=== PATIENT | female | born 1955 | race Caucasian/White ===

== ENCOUNTER 2022-11-23 14:09 | Observation (INO) | payer BC, MEDICARE ==
[2022-11-23 14:30] LABS: Glucose,Whole Blood 207 mg/dL (70-110)
[2022-11-23] MEDS ORDERED: FAMOTIDINE 20 MG/2 ML VIAL IV STA (14:37)
[2022-11-23] MEDS ORDERED: diphenhydrAMINE 50 MG/ML 1 ML VIAL IVP STA (14:37)
[2022-11-23] MEDS ORDERED: methylPREDNISolone SOD SUCCI 125 MG/2 ML VIAL IV STA (14:37)
--- NOTE | 2022-11-23 14:42 | ED ---
General Adult HPI - General Chief complaint: Neuro Symptoms/Deficit Stated complaint: neuro issues Time Seen by Provider: 11/23/22 14:30 Source: patient, RN notes reviewed, old records reviewed Mode of arrival: wheelchair Limitations: no limitations - History of Present Illness Initial comments: This is a 67-year-old female who presents emergency Department stating that at 10:30 she was at a store speaking to people clearly and had no symptoms numbness in her hand. Patient states since then she came home and she's been getting intermittent numbness to her right hand that lasted about 5 minutes then goes away and comes back a little while later. Patient states she also has speech that is stuttering in nature though sometimes she is speaking clearly and other times she was stuttering. Patient's last known normal was 10:30 her symptoms and her hand began at 11 but since she hadn't talked to anybody between 02/13/2011 we are counting the last known normal at 10:30. Patient also has significantly elevated blood pressure and that is the reason she came in because she took her blood pressure home when the symptoms began noted it to be high. Patient denies any chest pain or palpitations. Patient denies any difficulty breathing shortest breath per patient denies any lightheadedness or dizziness. Currently patient has no numbness or weakness in the hand - Related Data Home Medications Medication Instructions Recorded Confirmed INSULIN LISPRO (humaLOG) [HumaLOG] See Protocol SQ TID-W/MEALS PRN 03/22/16 11/23/22 Insulin Detemir (Levemir) [Levemir] 30 units SQ DAILY 03/22/16 11/23/22 Levothyroxine Sodium [Synthroid] 75 mcg PO DAILY 03/22/16 11/23/22 Irbesartan 300 mg PO DAILY 11/23/22 11/23/22 Meclizine [Antivert] 12.5 mg PO TID PRN 11/23/22 11/23/22 Omeprazole 40 mg PO AC-BRKFST 11/23/22 11/23/22 Potassium Chloride [Klor-Con 8] 8 meq PO DAILY 11/23/22 11/23/22 Rosuvastatin [Crestor] 20 mg PO HS 11/23/22 11/23/22 amLODIPine [Norvasc] 10 mg PO DAILY PRN 11/23/22 11/23/22 metFORMIN HCL 1,000 mg PO BID 11/23/22 11/23/22 Allergies Allergy/AdvReac Type Severity Reaction Status Date / Time Iodinated Contrast Media Allergy Anaphylaxis Verified 11/23/22 15:01 [Iodinated Contrast Media - Oral and] Review of Systems ROS Statement: Those systems with pertinent positive or pertinent negative responses have been documented in the HPI. ROS Other: All systems not noted in ROS Statement are negative. Past Medical History Past Medical History: Diabetes Mellitus, Hyperlipidemia, Hypertension, Thyroid Disorder History of Any Multi-Drug Resistant Organisms: None Reported Past Surgical History: Appendectomy, Hysterectomy Past Psychological History: No Psychological Hx Reported Smoking Status: Former smoker Past Alcohol Use History: None Reported Past Drug Use History: None Reported General Exam - General Exam Comments Initial Comments: GENERAL: Patient is well-developed and well-nourished. Patient is nontoxic and well- hydrated and is in mild distress. ENT: Neck is soft and supple. No significant lymphadenopathy is noted. Oropharynx is clear. Moist mucous membranes. Neck has full range of motion without eliciting any pain. EYES: The sclera were anicteric and conjunctiva were pink and moist. Extraocular movements were intact and pupils were equal round and reactive to light. Eyelids were unremarkable. PULMONARY: Unlabored respirations. Good breath sounds bilaterally. No audible rales rhonchi or wheezing was noted. CARDIOVASCULAR: There is a regular rate and rhythm without any murmurs gallops or rubs. ABDOMEN: Soft and nontender with normal bowel sounds. SKIN: Skin is clear with no lesions or rashes and otherwise unremarkable. NEUROLOGIC: Patient is alert and oriented x3. Cranial nerves II through XII are grossly intact. Motor and sensory are also intact. Normal speech, volume and content. Symmetrical smile. NIH is 1 when she is stuttering however on occasion she has no stridor and her an atrial be 0 at that point. Patient's blood pressures also significantly elevated MUSCULOSKELETAL: Normal extremities with adequate strength and full range of motion. No lower extremity swelling or edema. No calf tenderness. LYMPHATICS: No significant lymphadenopathy is noted PSYCHIATRIC: Normal psychiatric evaluation. Limitations: no limitations Course Vital Signs 11/23/22 11/23/22 11/23/22 14:09 14:36 15:06 Temperature 98.3 F Pulse Rate 107 H 93 89 Respiratory 20 18 18 Rate Blood Pressure 198/121 206/126 193/100 O2 Sat by Pulse 98 96 95 Oximetry 11/23/22 11/23/22 11/23/22 15:21 15:36 15:51 Temperature Pulse Rate 84 85 85 Respiratory 18 18 Rate Blood Pressure 170/100 202/105 192/102 O2 Sat by Pulse 94 L 94 L 95 Oximetry 11/23/22 11/23/22 11/23/22 16:00 16:06 16:21 Temperature Pulse Rate 85 86 Respiratory 18 18 Rate Blood Pressure 171/103 175/110 171/91 O2 Sat by Pulse 94 L 94 L Oximetry Medical Decision Making - Medical Decision Making EKG was interpreted by myself shows a sinus tachycardia at 102 bpm IA interval 140 QRS is 80 QT interval is 343 QTC is 41 per patient's EKG shows no ST segment elevation or depression. Was pt. sent in by a medical professional or institution (, PA, [facility] [employer] [facility], urgent care, hospital, or detention...) When possible be specific @ -[No] Did you speak to anyone other than the patient for history (EMS, parent, family, police, friend...)? What history was obtained from this source @ -[No] Did you review nursing and triage notes (agree or disagree)? Why? @ -[I reviewed and agree with nursing and triage notes] Were old charts reviewed (outside hosp., previous admission, EMS record, old EKG, old radiological studies, urgent care reports/EKG's, detention records)? Report findings @ -I reviewed prior charts per lab work on this patient Differential Diagnosis (chest pain, altered mental status, abdominal pain women, abdominal pain men, vaginal bleeding, weakness, fever, dyspnea, syncope, headache, dizziness, GI bleed, back pain, seizure, CVA, palpatations, mental health, musculoskeletal)? @ -Differential CVA Ischemic stroke, hemorrhagic stroke, brain tumor, atypical migraine, Wernicke's encephalopathy, seizure, multiple sclerosis, meningitis, encephalitis, hypoglycemia, Guillain-Calixto, electrolytes disturbance, myasthenia gravis.... This is not meant to be an all-inclusive list EKG interpreted by me (3pts min.). @ -[As above] X-rays interpreted by me (1pt min.). @ -Chest x-ray shows no acute abnormality CT interpreted by me (1pt min.). @ -CT of the brain shows no acute abnormality. CT angiogram shows no acute abnormality U/S interpreted by me (1pt. min.). @ -[None done] What testing was considered but not performed or refused? (CT, X-rays, U/S, labs)? Why? @ -[None] What meds were considered but not given or refused? Why? @ -[None] Did you discuss the management of the patient with other professionals (professionals i.e. , PA, [employer] [facility], lab, RT, psych nurse, social welfare administrator, machine heel builder, teacher, security police officer, onsite case manager)? Give summary @ -I spoke with the [facility] hospitalist and they agreed to admit the patient Was smoking cessation discussed for >3mins.? @ -[No] Was critical care preformed (if so, how long)? @ -[No] Were there social determinants of health that impacted care today? How? (Homelessness, low income, unemployed, alcoholism, drug addiction, transportation, low edu. Level, literacy, decrease access to med. care, care home, rehab)? @ -[No] Was there de-escalation of care discussed even if they declined (Discuss DNR or withdrawal of care, Hospice)? DNR status @ -[No] What co-morbidities impacted this encounter? (DM, HTN, Smoking, COPD, CAD, Cancer, CVA, ARF, Chemo, Hep., AIDS, mental health diagnosis, sleep apnea, m orbid obesity)? @ -[None] Was patient admitted / discharged? Hospital course, mention meds given and route, prescriptions, significant lab abnormalities, going to OR and other pertinent info. @ Patient symptoms completely resolved in the emergency department. Patient also was given medication for the blood pressure. Patient CT of the face showed no acute abnormality. Undiagnosed new problem with uncertain prognosis? @ -[No] Drug Therapy requiring intensive monitoring for toxicity (Heparin, Nitro, Insulin, Cardizem)? @ -[No] Were any procedures done? @ -[No] Diagnosis/symptom? @ CVA Acute, or Chronic, or Acute on Chronic? @ Acute Uncomplicated (without systemic symptoms) or Complicated (systemic symptoms)? @ -Complicated Side effects of treatment? @ -[No] Exacerbation, Progression, or Severe Exacerbation? @ -[No] Poses a threat to life or bodily function? How? (Chest pain, [place], [place], pneumonia, PE, COPD, DKA, ARF, appy, cholecystitis, CVA, Diverticulitis, Homicidal, Suicidal, threat to staff... and all critical care pts) @ -Yes this could lead to severe stroke or Diagnosis/symptom? @ -Hypertensive urgency Acute, or Chronic, or Acute on Chronic? @ -Acute Uncomplicated (without systemic symptoms) or Complicated (systemic symptoms)? @ -Complicated Side effects of treatment? @ -[none] Exacerbation, Progression, or Severe Exacerbation] @ -[no] Poses a threat to life or bodily function? @ -Yes this could lead to severe stroke and/or - Lab Data Result diagrams: 11/23/22 14:41 11/23/22 14:41 Lab Results 11/23/22 11/23/22 11/23/22 Range/Units 14:19 14:41 14:41 WBC 17.1 H (3.8-10.6) k/uL RBC 4.36 (3.80-5.40) m/uL Hgb 13.4 (11.4-16.0) gm/dL Hct 38.6 (34.0-46.0) % MCV 88.4 (80.0-100.0) fL MCH 30.6 (25.0-35.0) pg MCHC 34.6 (31.0-37.0) g/dL RDW 14.5 (11.5-15.5) % Plt Count 342 (150-450) k/uL MPV 7.7 Neutrophils % 72 % Lymphocytes % 22 % Monocytes % 4 % Eosinophils % 1 % Basophils % 0 % Neutrophils # 12.4 H (1.3-7.7) k/uL Lymphocytes # 3.8 (1.0-4.8) k/uL Monocytes # 0.6 (0-1.0) k/uL Eosinophils # 0.2 (0-0.7) k/uL Basophils # 0.1 (0-0.2) k/uL PT 10.2 (9.0-12.0) sec INR 1.0 (<1.2) APTT 22.0 (22.0-30.0) sec Sodium (137-145) mmol/L Potassium (3.5-5.1) mmol/L Chloride (98-107) mmol/L Carbon Dioxide (22-30) mmol/L Anion Gap mmol/L BUN (7-17) mg/dL Creatinine (0.52-1.04) mg/dL Est GFR (CKD-EPI)AfAm (>60 ml/min/1.73 sqM) Est GFR (CKD-EPI)NonAf (>60 ml/min/1.73 sqM) Glucose (74-99) mg/dL POC Glucose (mg/dL) 207 H (70-110) mg/dL POC Glu Mica Paster ID Milli Thompson Calcium (8.4-10.2) mg/dL Total Bilirubin (0.2-1.3) mg/dL AST (14-36) U/L ALT (4-34) U/L Alkaline Phosphatase (38-126) U/L Creatine Kinase (30-135) U/L Troponin I (0.000-0.034) ng/mL Total Protein (6.3-8.2) g/dL Albumin (3.5-5.0) g/dL 11/23/22 11/23/22 Range/Units 14:41 14:41 WBC (3.8-10.6) k/uL RBC (3.80-5.40) m/uL Hgb (11.4-16.0) gm/dL Hct (34.0-46.0) % MCV (80.0-100.0) fL MCH (25.0-35.0) pg MCHC (31.0-37.0) g/dL RDW (11.5-15.5) % Plt Count (150-450) k/uL MPV Neutrophils % % Lymphocytes % % Monocytes % % Eosinophils % % Basophils % % Neutrophils # (1.3-7.7) k/uL Lymphocytes # (1.0-4.8) k/uL Monocytes # (0-1.0) k/uL Eosinophils # (0-0.7) k/uL Basophils # (0-0.2) k/uL PT (9.0-12.0) sec INR (<1.2) APTT (22.0-30.0) sec Sodium 136 L (137-145) mmol/L Potassium 4.8 (3.5-5.1) mmol/L Chloride 101 (98-107) mmol/L Carbon Dioxide 24 (22-30) mmol/L Anion Gap 11 mmol/L BUN 14 (7-17) mg/dL Creatinine 0.90 (0.52-1.04) mg/dL Est GFR (CKD-EPI)AfAm 77 (>60 ml/min/1.73 sqM) Est GFR (CKD-EPI)NonAf 67 (>60 ml/min/1.73 sqM) Glucose 186 H (74-99) mg/dL POC Glucose (mg/dL) (70-110) mg/dL POC Glu Mica Paster ID Calcium 9.5 (8.4-10.2) mg/dL Total Bilirubin 0.8 (0.2-1.3) mg/dL AST 38 H (14-36) U/L ALT 17 (4-34) U/L Alkaline Phosphatase 72 (38-126) U/L Creatine Kinase 99 (30-135) U/L Troponin I <0.012 (0.000-0.034) ng/mL Total Protein 8.1 (6.3-8.2) g/dL Albumin 4.5 (3.5-5.0) g/dL Disposition Clinical Impression: Cerebrovascular accident (CVA), Hypertensive urgency Disposition: ADMITTED IP TO THIS [facility] Referrals: Nonstaff,Physician [REFERRING] - 1-2 days Time of Disposition: 16:43
[2022-11-23 14:50] LABS: Basophils # (A) 0.1 k/uL (0-0.2); Basophils % (A) 0 %; Eosinophils # (A) 0.2 k/uL (0-0.7); Eosinophils % (A) 1 %; HCT 38.6 % (34.0-46.0); HGB 13.4 gm/dL (11.4-16.0); Lymphocytes # (A) 3.8 k/uL (1.0-4.8); Lymphocytes % (A) 22 %; MCH 30.6 pg (25.0-35.0); MCHC 34.6 g/dL (31.0-37.0); MCV 88.4 fL (80.0-100.0); Mean Platelet Volume 7.7; Monocytes # (A) 0.6 k/uL (0-1.0); Monocytes % (A) 4 %; Neutrophils # (A) 12.4 k/uL (1.3-7.7); Neutrophils % (A) 72 %; Platelet Count 342 k/uL (150-450); RBC 4.36 m/uL (3.80-5.40); RDW 14.5 % (11.5-15.5); WBC 17.1 k/uL (3.8-10.6)
--- NOTE | 2022-11-23 15:07 | CT ---
EXAMINATION TYPE: CT brain wo con CT DLP: 1110.2 mGycm, Automated exposure control for dose reduction was used. DATE OF EXAM: 11/23/2022 3:03 PM COMPARISON: None. CLINICAL INDICATION:Female, 67 years old with history of Neuro deficit, acute, stroke suspected, cva TECHNIQUE: Brain: Multiple axial CT images of the brain were obtained without IV contrast. Coronal and sagittal reformats reviewed. FINDINGS: Brain: Extra-axial spaces: No abnormal extra-axial fluid collections. Ventricular system: Within normal limits Cerebral parenchyma: No acute intraparenchymal hemorrhage or mass effect. There is a hypodensity wit hin the central timbo. The holcomb-white junction is well differentiated. Scattered hypoattenuating areas are seen within the white matter. Cerebellum: Unremarkable. Mass effect: No evidence of midline shift. Intracranial vasculature: Atherosclerotic calcifications of the intracranial vessels. Soft tissues: Normal. Calvarium/osseous structures: No depressed skull fracture. Paranasal sinuses and mastoid air cells: Clear Visualized orbits: Bilateral aphakia IMPRESSION: 1. Age-indeterminate lacunar injury within the central timbo. Consider further evaluation with MRI br ain as clinically indicated. 2. No acute intraparenchymal hemorrhage. 3. Nonspecific white matter changes, likely secondary to chronic small vessel ischemic disease.
[2022-11-23 15:08] LABS: Prothrombin Time 10.2 sec (9.0-12.0)
[2022-11-23 15:10] LABS: ALT 17 U/L (4-34); AST 38 U/L (14-36); African American GFR (CKD) 77 (>60 ml/min/1.73 sqM); Albumin 4.5 g/dL (3.5-5.0); Alkaline Phosphatase 72 U/L (38-126); Anion Gap 11 mmol/L; Blood Urea Nitrogen 14 mg/dL (7-17); Calcium 9.5 mg/dL (8.4-10.2); Carbon Dioxide 24 mmol/L (22-30); Chloride 101 mmol/L (98-107); Creatine Kinase 99 U/L (30-135); Glucose 186 mg/dL (74-99); Non-African American GFR(CKD) 67 (>60 ml/min/1.73 sqM); Potassium 4.8 mmol/L (3.5-5.1); Sodium 136 mmol/L (137-145); Total Bilirubin 0.8 mg/dL (0.2-1.3); Total Protein 8.1 g/dL (6.3-8.2)
--- NOTE | 2022-11-23 15:33 | CT ---
EXAMINATION TYPE: CT angio head neck DATE OF EXAM: 11/23/2022 COMPARISON: CT brain 12/03/2022 HISTORY: cva CT DLP: 195 mGycm CONTRAST: Performed with IV Contrast, patient injected with 65cc mL of Isovue 370. Combination Contrast CTA cervical carotids and [place] of [place] CTA cervical carotids with 3-D recons truction Contrast CTA of the cervical carotids was performed 3-D reconstruction imaging obtained at a separate workstation. Right carotid system: Mild plaque is seen of the right common carotid artery. There is mild plaque a lso noted at the carotid bulb and proximal ICA. No significant diameter reduction. ECA is patent. Right vertebral artery appears unremarkable. Left carotid system: Mild plaque is seen of the left common carotid artery. There is mild plaque als o noted at the carotid bulb and proximal ICA. No significant diameter reduction. ECA is patent. Lef t vertebral artery appears unremarkable. Enlarged internal jugular chain lymph node on the right measures 1.4 cm. Enlarged lymph node about th e right submandibular gland anteriorly measures 1.1 cm. Subcentimeter lymph nodes seen within both in ternal jugular chains and left perisubmandibular region. IMPRESSION: 1. No significant diameter reduction to account for the patient's symptoms. 2. Nonspecific adenopathy within the neck. CTA [place] with 3-D reconstruction Contrast CTA of the [place] was performed 3-D reconstruction imaging obtained at a separate workstation. Vertebrobasilar system as well as intracranial portions of the internal carotid arteries and their ma saida tributaries are patent. 4 mm aneurysm left MCA M1 segment. No large vascular occlusion seen. Plea se note MRI provides greater sensitivity and specificity. Visualized brain appears grossly unremarka ble. IMPRESSION: 1. No evidence for large vessel occlusion. 2. There is a 4 mm aneurysm left MCA M1 segment. NASCET criteria was used in interpretation of this exam?
--- NOTE | 2022-11-23 15:38 | XR ---
EXAMINATION TYPE: XR chest 2V DATE OF EXAM: 11/23/2022 COMPARISON: NONE HISTORY: Shortness of breath TECHNIQUE: Frontal and lateral views of the chest are obtained. FINDINGS: Scattered senescent parenchymal changes noted. No evidence for infiltrate. No evidence for atelectasis. Heart size is stable. Mediastinal structures are stable and grossly unremarkable. No evidence for hilar prominence. Degenerative changes dorsal spine. IMPRESSION: 1. No evidence for acute pulmonary disease.
[2022-11-23] MEDS ORDERED: hydrALAZINE HCL 20 MG/ML 1 ML VIAL IVP STA (15:56)
[2022-11-23] MEDS ORDERED: ASPIRIN 325 MG TAB PO STA (16:43)
[2022-11-23] MEDS ORDERED: NICOTINE 7MG/24HR PATCH TRANSDERM STA (17:03)
[2022-11-23] MEDS ORDERED: MECLIZINE 25 MG TAB PO PRN (19:37)
[2022-11-23] MEDS ORDERED: DEXTROSE 50% SYRINGE 50 ML IVP PRN ×2 (19:43)
[2022-11-23] MEDS ORDERED: amLODIPine 10 MG TAB PO PRN (19:45)
[2022-11-23] MEDS ORDERED: amLODIPine 10 MG TAB PO SCH (19:45)
[2022-11-23 19:48] LABS: Glucose,Whole Blood 304 mg/dL (70-110)
[2022-11-23] MEDS: ATORVASTATIN 40 MG TAB PO SCH (20:25)
[2022-11-23] MEDS: INSULIN ASPART (NovoLOG) 100 UNIT/ML VIAL SQ SCH (20:25)
[2022-11-24 06:07] LABS: Glucose,Whole Blood 207 mg/dL (70-110)
[2022-11-24] MEDS: INSULIN DETEMIR (LEVEMIR) 100 UNIT/ML SYR SQ SCH (06:33)
[2022-11-24] MEDS: PANTOPRAZOLE 40 MG TABLET PO SCH (06:33)
[2022-11-24] MEDS: LEVOTHYROXINE 75 MCG TAB PO SCH (06:33)
[2022-11-24] MEDS: INSULIN ASPART (NovoLOG) 100 UNIT/ML VIAL SQ SCH ×4 (06:33→20:35)
[2022-11-24] MEDS ORDERED: metFORMIN 500 MG TAB PO SCH (07:30)
[2022-11-24] MEDS: ASPIRIN 325 MG TAB PO SCH (08:39)
[2022-11-24 11:01] LABS: Chol/HDL Ratio 3.37 Ratio; LDL Cholesterol,Calculated 96.6 mg/dL (0.0-131.0)
--- NOTE | 2022-11-24 11:41 | US ---
EXAMINATION TYPE: US carotid duplex BILAT DATE OF EXAM: 11/24/2022 COMPARISON: CTA head and neck 11/23/2022, carotid ultrasound 09/23/2009 CLINICAL INDICATION: Female, 67 years old with history of Slurred speech; Slurred speech, TIA TECHNIQUE: Carotid duplex ultrasound examination. Indirect Doppler criteria was utilized. FINDINGS: EXAM MEASUREMENTS: RIGHT: Peak Systolic Velocity (PSV) cm/sec ----- Right CCA: 79.7 ----- Right ICA: 95.9 ----- Right ECA: 109 ICA/CCA ratio: 1.2 RIGHT: End Diastole cm/sec ----- Right CCA: 9.2 ----- Right ICA: 9.7 ----- Right ECA: 9.8 LEFT: Peak Systolic Velocity (PSV) cm/sec ----- Left CCA: 60.8 ----- Left ICA: 119 ----- Left ECA: 234 ICA/CCA ratio: 1.9 LEFT: End Diastole cm/sec ----- Left CCA: 12.3 ----- Left ICA: 24.3 ----- Left ECA: 17.1 VERTEBRALS (direction of flow): Right Vertebral: Antegrade Left Vertebral: Antegrade Rhythm: Normal ELECTION JUDGE NOTES: Mild heterogeneous plaque bilaterally with no significant stenosis IMPRESSION: No ultrasound evidence for hemodynamically significant stenosis of the bilateral carotid arterial sys tems corresponding to yesterday CTA head neck. Criteria for Assigning % of Stenosis / Diameter reduction (Estimation based on the indirect measurements of the internal carotid artery velocities (ICA PSV). 1. Normal (no stenosis)=ICA PSV < 125 cm/s: ratio < 2.0: ICA EDV<40 cm/s. 2. Less than 50% stenosis=ICA PSV < 125 cm/s: ratio < 2.0: ICA EDV<40 cm/s. 3. 50 to 69% stenosis=ICA PSV of 125 to 230 cm/s: ration 2.0 ? 4.0: ICA EDV 40-100 cm/s. 4. Greater than 70% stenosis to near occlusion= ICA PSV > 230 cm/s: ratio > 4.0: ICA EDV > 100 cm/s. 5. Near occlusion= ICA PSV velocities may be low or undetectable: variable ratio and ICA EDV. 6. Total occlusion=unable to detect flow.
[2022-11-24] MEDS: NICOTINE 14MG/24HR PATCH TRANSDERM SCH (12:01)
[2022-11-24 12:04] LABS: Glucose,Whole Blood 196 mg/dL (70-110)
--- NOTE | 2022-11-24 13:21 | P.HPIM ---
History of Present Illness H&P Date: 11/24/22 History of present illness; patient is 67-year-old lady with past medical histor y significant for hypothyroidism, hypertension, diabetes mellitus who presented to the ER because of slurred speech and numbness of her hand. Patient stated that at 10:30 AM she was in the store started noticing that there was numbness of her right hand, it was intermittent and coming and going, denied any weakness of that particular extremity. She also started noticing that his speech was stuttering. Denied any facial droop. Denied any weakness of any extremity. Patient came back home and continued to experience those symptoms, blood pressure was elevated at time. Because of these symptoms, patient came to the ER Initial lab work done in the ER showed WBC 17.1, hemoglobin 13.4, platelet count 342, sodium 136, potassium 4.8, BUN 14, creatinine 0.[address] brain done showed age indeterminate lacunar injuryCentral timbo, no acute intraperitoneal hemorrhage CTA done showed no evidence for large vessel occlusion, showed a 4 mm aneurysm of left MCA patient was admitted to medicine service REVIEW OF SYSTEMS: CONSTITUTIONAL: No fever, no malaise, no fatigue. HEENT: No recent visual problems or hearing problems. Denied any sore throat. CARDIOVASCULAR: No chest pain, orthopnea, PND, no palpitations, no syncope. PULMONARY: No shortness of breath, no cough, no hemoptysis. GASTROINTESTINAL: No diarrhea, no nausea, no vomiting, no abdominal pain. NEUROLOGICAL: As mentioned in HPI HEMATOLOGICAL: Denies any bleeding or petechiae. GENITOURINARY: Denies any burning micturition, frequency, or urgency. MUSCULOSKELETAL/RHEUMATOLOGICAL: Denies any joint pain, swelling, or any muscle pain. ENDOCRINE: Denies any polyuria or polydipsia. The rest of the 14-point review of systems is negative. PHYSICAL EXAMINATION: GENERAL: The patient is alert and oriented x3, not in any acute distress. Well developed, well nourished. HEENT: Pupils are round and equally reacting to light. EOMI. No scleral icterus. No conjunctival pallor. Normocephalic, atraumatic. No pharyngeal erythema. No thyromegaly. CARDIOVASCULAR: S1 and S2 present. No murmurs, rubs, or gallops. PULMONARY: Chest is clear to auscultation, no wheezing or crackles. ABDOMEN: Soft, nontender, nondistended, normoactive bowel sounds. No palpable organomegaly. MUSCULOSKELETAL: No joint swelling or deformity. EXTREMITIES: No cyanosis, clubbing, or pedal edema. NEUROLOGICAL: Alert awake oriented 3, muscle strength is 5 x 5 in all extremities, no sensory deficit, cranial nerves II through XII intact SKIN: No rashes. Assessment and plan Acute CVA 4 mm aneurysm of left MCA Hypertensive emergency Hyperlipidemia Insulin-dependent diabetes mellitus Monitor vital signs Monitor CBC Monitor CMP Continue telemetry monitoring Continue checks Continue aspirin Lipitor, Ordered 2-D echo Ordered lipid panel Ordered HbA1c levels Consult neurology Labs and medication were reviewed.. Continue same treatment. Continue with symptomatic treatment. Resume home medication. Monitor labs and vitals. DVT and GI prophylaxis. Further recommendations as per clinical course of the patient Dictation was produced using [employer] dictation software. please excuse any grammatical, word or spelling errors. Past Medical History Past Medical History: Diabetes Mellitus, Hyperlipidemia, Hypertension, Thyroid Disorder History of Any Multi-Drug Resistant Organisms: None Reported Past Surgical History: Appendectomy, Hysterectomy Past Psychological History: No Psychological Hx Reported Smoking Status: Current every day smoker Past Alcohol Use History: None Reported Past Drug Use History: None Reported Medications and Allergies Home Medications Medication Instructions Recorded Confirmed Type INSULIN LISPRO (humaLOG) [HumaLOG] See Protocol SQ TID-W/MEALS PRN 03/22/16 11/23/22 History Insulin Detemir (Levemir) [Levemir] 30 units SQ DAILY 03/22/16 11/23/22 History Levothyroxine Sodium [Synthroid] 75 mcg PO DAILY 03/22/16 11/23/22 History Irbesartan 300 mg PO DAILY 11/23/22 11/23/22 History Meclizine [Antivert] 12.5 mg PO TID PRN 11/23/22 11/23/22 History Omeprazole 40 mg PO AC-BRKFST 11/23/22 11/23/22 History Potassium Chloride [Klor-Con 8] 8 meq PO DAILY 11/23/22 11/23/22 History Rosuvastatin [Crestor] 20 mg PO HS 11/23/22 11/23/22 History amLODIPine [Norvasc] 10 mg PO DAILY PRN 11/23/22 11/23/22 History metFORMIN HCL 1,000 mg PO BID 11/23/22 11/23/22 History Allergies Allergy/AdvReac Type Severity Reaction Status Date / Time Iodinated Contrast Media Allergy Anaphylaxis Verified 11/23/22 15:01 [Iodinated Contrast Media - Oral and] Physical Exam Vitals: Vital Signs Temp Pulse Pulse Resp BP BP Pulse Ox 11/24/22 03:57 97.8 F 74 18 123/68 94 L 11/24/22 00:00 98.0 F 82 19 118/64 95 11/23/22 20:00 98.2 F 91 19 160/75 93 L 11/23/22 18:59 97.6 F 104 H 18 172/92 94 L 11/23/22 18:39 92 18 182/102 96 11/23/22 18:16 92 18 177/94 93 L 11/23/22 16:46 92 18 182/102 96 11/23/22 16:21 86 18 171/91 94 L 11/23/22 16:06 85 18 175/110 94 L 11/23/22 16:00 171/103 11/23/22 15:51 85 18 192/102 95 11/23/22 15:36 85 202/105 94 L 11/23/22 15:21 84 18 170/100 94 L 11/23/22 15:06 89 18 193/100 95 11/23/22 14:36 93 18 206/126 96 11/23/22 14:09 98.3 F 107 H 20 198/121 98 Intake and Output 11/23/22 11/24/22 11/24/22 22:59 06:59 14:59 Other: Voiding Method Toilet Toilet # Voids 2 Weight 61.235 kg Results CBC & Chem 7: 11/23/22 14:41 11/23/22 14:41 Labs: Abnormal Lab Results - Last 24 Hours (Table) 11/23/22 11/23/22 11/23/22 Range/Units 14:19 14:41 14:41 WBC 17.1 H (3.8-10.6) k/uL Neutrophils # 12.4 H (1.3-7.7) k/uL Sodium 136 L (137-145) mmol/L Glucose 186 H (74-99) mg/dL POC Glucose (mg/dL) 207 H (70-110) mg/dL AST 38 H (14-36) U/L 11/23/22 11/24/22 Range/Units 19:46 06:01 WBC (3.8-10.6) k/uL Neutrophils # (1.3-7.7) k/uL Sodium (137-145) mmol/L Glucose (74-99) mg/dL POC Glucose (mg/dL) 304 H 207 H (70-110) mg/dL AST (14-36) U/L
[2022-11-24] MEDS: CLOPIDOGREL 75 MG TAB PO SCH (16:05)
[2022-11-24 16:30] LABS: Glucose,Whole Blood 212 mg/dL (70-110)
--- NOTE | 2022-11-24 17:10 | CA ---
Transthoracic Echo Report Name: Adrienne Arteaga Age: 67 Gender: F : 1955 Exam Date: 11/24/2022 11:09 Exam Location: [facility] Ht (in): 60 Wt (lb): 135 Ordering Physician: Ibrahima Dixon MD Attending/Referring Phys: Jelly Maker Gordo Vega Procedure CPT: Indications: Slurred speech, CVA Cardiac Hx: Technical Quality: Fair Contrast 1: Total Dose (mL): Contrast 2: Total Dose (mL): MEASUREMENTS (Male / Female) Normal Values 2D ECHO LV Diastolic Diameter PLAX 4.0 cm 4.2 - 5.9 / 3.9 - 5.3 cm LV Systolic Diameter PLAX 2.0 cm IVS Diastolic Thickness 1.4 cm 0.6 - 1.0 / 0.6 - 0.9 cm LVPW Diastolic Thickness 1.1 cm 0.6 - 1.0 / 0.6 - 0.9 cm LV Relative Wall Thickness 0.6 RV Internal Dim ED PLAX 2.7 cm LVOT Diameter 2.0 cm Aortic Root Diameter 2.8 cm LA Systolic Diameter LX 2.7 cm 3.0 - 4.0 / 2.7 - 3.8 cm LV Diastolic Volume MOD BP 43.3 cm??? 67 - 155 / 56 - 104 cm??? LV Systolic Volume MOD BP 19.3 cm??? 22 - 58 / 19 - 49 cm??? LV Ejection Fraction MOD BP 55.4 % >= 55 % LV Cardiac Index MOD BP 1178.5 cm???/min???m??? LV Diastolic Volume MOD 4C 47.5 cm??? LV Systolic Volume MOD 4C 14.6 cm??? LV Ejection Fraction MOD 4C 69.2 % LV Cardiac Index MOD 4C 1618.3 cm???/min???m??? LV Diastolic Length 4C 6.0 cm LV Systolic Length 4C 4.6 cm LV Diastolic Volume MOD 2C 39.4 cm??? LV Systolic Volume MOD 2C 21.0 cm??? LV Ejection Fraction MOD 2C 46.7 % LV Cardiac Index MOD 2C 905.0 cm???/min???m??? LV Diastolic Length 2C 6.2 cm LV Systolic Length 2C 5.7 cm LA Volume 32.3 cm??? 18 - 58 / 22 - 52 cm??? Ascending Aorta Diameter 3.5 cm DOPPLER AV Peak Velocity 181.9 cm/s AV Peak Gradient 13.2 mmHg LVOT Peak Velocity 148.7 cm/s LVOT Peak Gradient 8.8 mmHg AV Area Cont Eq pk 2.5 cm??? MV Peak Velocity 99.8 cm/s MV Peak Gradient 4.0 mmHg MV Mean Velocity 54.5 cm/s MV Mean Gradient 1.4 mmHg MV Velocity Time Integral 25.2 cm MR Peak Velocity 389.5 cm/s MR Peak Gradient 60.7 mmHg Mitral E Point Velocity 76.7 cm/s Mitral A Point Velocity 86.4 cm/s Mitral E to A Ratio 0.9 MV Deceleration Time 199.2 ms MV E' Velocity 6.9 cm/s Mitral E to MV E' Ratio 11.1 TR Peak Velocity 216.9 cm/s TR Peak Gradient 18.8 mmHg Right Ventricular Systolic Press 23.8 mmHg PV Peak Velocity 101.5 cm/s PV Peak Gradient 4.1 mmHg FINDINGS Left Ventricle Normal LV size and wall thickness. Left ventricular ejection fraction is estimated at 55-60 %. No obvious regional wall motion abnormality Right Ventricle Normal right ventricular size. RVSP=24mmhg. normal RV global systolic function Right Atrium Normal right atrial size. Left Atrium Normal left atrial size. LA volume index= 20ml.m2 Mitral Valve Structurally normal mitral valve. Mild MR. Aortic Valve Trileaflet aortic valve. No aortic valve stenosis or regurgitation. Tricuspid Valve Structurally normal tricuspid valve. Mild TR. Pulmonic Valve Structurally normal pulmonic valve. No pulmonic regurgitation. Pericardium No pericardial effusion Aorta Normal size aortic root and proximal ascending aorta. CONCLUSIONS Normal LV systolic function. EF estimated at 55-60% No obvious regional wall motion abnormality Normal LV size and wall thickness. No significant valvular pathology No significant chamber size abnormality Bubble study was not performed. No prior echo to compare with Previewed by: Dr Thor Bahkta (Electronically Signed) Final Date: 24 November 2022 17:09
--- NOTE | 2022-11-24 17:10 | MR ---
EXAMINATION TYPE: MR brain wo con DATE OF EXAM: 11/24/2022 COMPARISON: CT brain 12/03/2022 HISTORY: Stroke vs TIA. CONTRAST: Performed utilizing 0 mL intravenous Gadavist gadolinium contrast. TECHNIQUE: Multiplanar, multiecho imaging on a 3.0 Damaris magnet is performed through the brain. Stud y is performed within 24 hours of arrival to the hospital. The craniovertebral junction is normal. The pituitary is normal. Diffusion-weighted imaging is performed. No abnormal hyperintensity is present to suggest an acute i ntracranial infarct or acute ischemic change. There is some mild hyperintensity on T2-weighted sequences in the periventricular white matter adjace nt to the posterior horn right lateral ventricle may be some nonspecific chronic appearing white meena er ischemic change. Ventricles and sulci are appropriate for the patient age. IMPRESSIONS: 1. 1. No acute intracranial process. 2. Mild chronic appearing periventricular white matter ischemic change.
--- NOTE | 2022-11-24 20:05 | P.CNNES ---
History of Present Illness Consult date: 11/24/22 Requesting physician: Arslan Aparicio Reason for Consult: CVA History of Present Illness: Patient is a 67-year-old right-handed female, who came to the hospital yesterday at 2:09 PM for strokelike symptoms. Patient states that yesterday she had gone to the store, then she went for lunch. At around 11 AM she notices something was not right with the right hand. It felt a little numb, and little pain. She did not eat much. The symptoms got worse by 12 noon. Her right hand became numb and was somewhat spasming. She felt not enough strength in the right hand. She got into the vehicle and drove to her house. Her gozixs-ai-uhb, who is a nurse, told her to check blood pressure, which was 215/110. Her emxsxl-ol-jpm drove her to the ER. When she was talking, was stuttering, couldn't get words out, couldn't get words formed in the mind. The symptoms got worse when she arrived to the ER, would not answer questions. In the ER, they started her on oxygen, and her symptoms started improving. By 8 PM, all symptoms have slowly resolved. At present she feels fine. Vital signs on arrival blood pressure 198/121, which went up to 206/126. Pulse rate 107, temperature 98.3. Blood test shows WBC 17.1 hemoglobin 13.4, normal platelets. PT/PTT normal, sodium 136, normal other electrolytes, renal functions and hepatic panel. AST is mildly elevated 38 CK is normal troponin negative. Chest x-ray revealed no evidence for acute pulmonary process. EKG with sinus tachycardia CT head revealed age indeterminate lacunar injury within the central timbo. Consider further evaluation with MRI brain as clinically indicated. No acute intracranial hemorrhage. I personally reviewed CT head, agree with the findings. Patient has history of hypertension for 2 years. It is mostly controlled, although intermittent September 2022, she had some dental procedure in which her blood pressure was around 225 systolic. Patient has diabetes for 20 years. She has developed a neuropathy, with right foot numbness and also is part of the left foot also numb from neuropathy. She has smoked one fourth pack per day since 1988, although did quit for 10 years, and then resumed 8 years ago. Overall she has 24 years of smoking water pack per day. Denies any alcohol use. It is uncertain the documentation, if stroke code was activated, as the ED note is incomplete at this time. Patient did not receive TPA. Please refer to ER note for further detail. Patient complains of dizziness since May. Patient denies any place history of strokes or TIA. Review of Systems Constitutional: Denies chills, Denies fever Eyes: denies blurred vision, denies diplopia, denies pain Ears: deny: decreased hearing, ear discharge Ears, nose, mouth and throat: Denies headache, Denies sore throat Cardiovascular: Reports lightheadedness, Denies chest pain, Denies leg edema, Denies shortness of breath Respiratory: Denies cough, Denies excessive sputum Gastrointestinal: Denies abdominal pain, Denies diarrhea, Denies nausea, Denies vomiting Genitourinary: Denies dysuria, Denies hematuria Musculoskeletal: Denies frequent falls, Denies gait dysfunction, Denies limitation of motion, Denies myalgias, Denies neck pain Integumentary: Denies pruritus, Denies rash Neurological: Reports as per HPI Psychiatric: Denies anxiety, Denies depression Endocrine: Denies fatigue, Denies palpitations Past Medical History Past Medical History: Diabetes Mellitus, Hyperlipidemia, Hypertension, Thyroid Disorder History of Any Multi-Drug Resistant Organisms: None Reported Past Surgical History: Appendectomy, Hysterectomy Past Psychological History: No Psychological Hx Reported Smoking Status: Current every day smoker Past Alcohol Use History: None Reported Past Drug Use History: None Reported Medications and Allergies Home Medications Medication Instructions Recorded Confirmed Type INSULIN LISPRO (humaLOG) [HumaLOG] See Protocol SQ TID-W/MEALS PRN 03/22/16 11/23/22 History Insulin Detemir (Levemir) [Levemir] 30 units SQ DAILY 03/22/16 11/23/22 History Levothyroxine Sodium [Synthroid] 75 mcg PO DAILY 03/22/16 11/23/22 History Irbesartan 300 mg PO DAILY 11/23/22 11/23/22 History Meclizine [Antivert] 12.5 mg PO TID PRN 11/23/22 11/23/22 History Omeprazole 40 mg PO AC-BRKFST 11/23/22 11/23/22 History Potassium Chloride [Klor-Con 8] 8 meq PO DAILY 11/23/22 11/23/22 History Rosuvastatin [Crestor] 20 mg PO HS 11/23/22 11/23/22 History amLODIPine [Norvasc] 10 mg PO DAILY PRN 11/23/22 11/23/22 History metFORMIN HCL 1,000 mg PO BID 11/23/22 11/23/22 History Allergies Allergy/AdvReac Type Severity Reaction Status Date / Time Iodinated Contrast Media Allergy Anaphylaxis Verified 11/23/22 15:01 [Iodinated Contrast Media - Oral and] Physical Examination - Vital Signs Vital Signs: Vital Signs Temp Pulse Pulse Resp BP BP Pulse Ox 11/24/22 12:43 95 11/24/22 12:00 100 18 156/72 97 11/24/22 08:40 98.1 F 74 17 146/79 98 11/24/22 03:57 97.8 F 74 18 123/68 94 L 11/24/22 00:00 98.0 F 82 19 118/64 95 11/23/22 20:00 98.2 F 91 19 160/75 93 L 11/23/22 18:59 97.6 F 104 H 18 172/92 94 L 11/23/22 18:39 92 18 182/102 96 11/23/22 18:16 92 18 177/94 93 L 11/23/22 16:46 92 18 182/102 96 11/23/22 16:21 86 18 171/91 94 L 11/23/22 16:06 85 18 175/110 94 L 11/23/22 16:00 171/103 11/23/22 15:51 85 18 192/102 95 11/23/22 15:36 85 202/105 94 L 11/23/22 15:21 84 18 170/100 94 L 11/23/22 15:06 89 18 193/100 95 Intake and Output 11/23/22 11/24/22 11/24/22 22:59 06:59 14:59 Other: Voiding Method Toilet Toilet Toilet # Voids 2 Weight 61.235 kg Patient is an elderly female, very pleasant, in no acute distress. Patient is alert awake oriented to time place and person. Speech and language functions are normal. Patient can name and repeat very well. No aphasia or dysarthria. Attention, concentration and fund of knowledge is adequate. On cranial nerve examination, pupils are equal, round and reacting to light, visual laird are full on confrontation, with no neglect on double simultaneous stimulation. Extraocular muscles are intact with no nystagmus. Face is symmetric, tongue protrudes to the midline. Palatal elevation and sensation normal, hearing and shoulder shrug normal, facial sensation normal. On muscle strength testing, there is no pronator drift and the strength is normal in arms and legs distally and proximally. Deep tendon reflexes are symmetric 2 at the biceps, 1+ brachioradialis, 2 at the knees, 1 at ankles and plantars downgoing bilaterally. Sensory to touch is equal with no neglect on double simultaneous stimulation. Cerebellar function showed no ataxia for cuuksr-ki-mqru testing, although she is slightly tremulous for soaylu-us-zwea testing only on the left. No dysdiadochokinesia. No ataxia for aazm-vq-ilbu testing on either side. Tone an d bulk of muscles normal. Gait deferred.. On general examination, there is no carotid bruit or murmur, S1-S2 audible. Chest is clear on consultation. Abdomen is soft nontender. No organomegaly, b owel sounds present. Peripheral pulses are present. No edema. Results - Laboratory Findings CBC and BMP: 11/23/22 14:41 11/23/22 14:41 Abnormal Lab Findings: Abnormal Labs 11/23/22 11/23/22 11/23/22 14:19 14:41 14:41 WBC 17.1 H Neutrophils # 12.4 H Sodium 136 L Glucose 186 H POC Glucose (mg/dL) 207 H Hemoglobin A1c AST 38 H 11/23/22 11/24/22 11/24/22 19:46 06:01 07:52 WBC Neutrophils # Sodium Glucose POC Glucose (mg/dL) 304 H 207 H Hemoglobin A1c 7.2 H AST 11/24/22 11:59 WBC Neutrophils # Sodium Glucose POC Glucose (mg/dL) 196 H Hemoglobin A1c AST Assessment and Plan Assessment: * Probable TIA via CVA, manifesting with transient speech difficulty and right hand numbness. Her symptoms resolved in about 9 hours. Differential diag nosis also includes hypertensive encephalopathy. Her current NIH stroke scale is 0. * Hypertension, with recent escalation of blood pressure. * Cerebral aneurysm, 4 mm involving left MCA M1 segment, likely incidental finding. * Diabetes * Hyperlipidemia * Tobacco use Plan: * MRI of the brain without contrast, evaluate for acute CVA * 2-D echo with bubble study to rule out PFO * CTA head and neck showed: No significant diameter reduction to account for the patient's symptoms. Nonspecific adenopathy within the neck. CTA of the head showed no evidence for large vessel occlusion. There is a 4 mm aneurysm left MCA M1 segment. * Carotid Doppler, revealed no ultrasound evidence for hemodynamically significant stenosis of bilateral carotid arterial system. Antegrade flow in both vertebral arteries. * Patient CTA of the head showed a 4 mm cerebral aneurysm left MCA M1 segment. It is asymptomatic, incidental finding at this time. Recommend patient follow up with neuro intervention Dr. Fierro as an outpatient in 2-4 weeks. * Fasting a.m. lipid panel cholesterol 175, LDL 96, HDL 52 and triglycerides 132. Patient not on statins. Recommend starting Lipitor to target LDL <70. * Hemoglobin A1c 7.2. Recommend optimize control of diabetes to target A1c <7.0 * Optimize control of blood pressure to target < 130/70. * Patient was not taking any antiplatelet medication at home. Patient has been started on aspirin 325 mg daily. Her ABCD2 score is 6, which is a high risk for stroke. Patient will be placed on dual antiplatelet medication with as pirin 81 mg and Plavix 75 mg daily for 30 days. Thereafter she can stop Plavix and continue aspirin 81 mg indefinitely. * Close neuro checks. * Recommend complete tobacco cessation. * Telemetry monitoring rule out any arrhythmia. So far showing sinus rhythm, with sinus tachycardia with some PAC. * Neurology will continue to follow. Thank you for the consult. Addendum 6 PM: Patient underwent MRI of the brain which revealed no acute intracranial process. Mild chronic-appearing periventricular white matter ischemic change. I personally reviewed MRI, I agree with the findings. On my review, there is evidence of some demyelination in the central timbo. No acute process. 2-D echo revealed normal left ventricular systolic function with EF 55-60%. No obvious regional wall motion abnormality. Normal left ventricular size and wall thickness. Bubble study not performed. I came back to discuss with patient about her test for possible discharge. Vimal crawford at that time mentioned that she was having some numbness of the right hand, as if her symptoms are coming back. While I was there, the symptoms resolved within 5 minutes. I would suggest keeping patient overnight for stability. It remains stable overnight, then may be discharged. Time with Patient: Greater than 30
[2022-11-24 20:24] LABS: Glucose,Whole Blood 192 mg/dL (70-110)
[2022-11-24] MEDS: ATORVASTATIN 40 MG TAB PO SCH (20:35)
[2022-11-25 06:10] LABS: Glucose,Whole Blood 118 mg/dL (70-110)
[2022-11-25] MEDS: INSULIN ASPART (NovoLOG) 100 UNIT/ML VIAL SQ SCH ×2 (06:11→11:49)
[2022-11-25] MEDS: PANTOPRAZOLE 40 MG TABLET PO SCH (06:33)
[2022-11-25] MEDS: INSULIN DETEMIR (LEVEMIR) 100 UNIT/ML SYR SQ SCH (06:33)
[2022-11-25] MEDS: LEVOTHYROXINE 75 MCG TAB PO SCH (06:33)
[2022-11-25] MEDS: NICOTINE 14MG/24HR PATCH TRANSDERM SCH (08:25)
[2022-11-25] MEDS: CLOPIDOGREL 75 MG TAB PO SCH (08:25)
[2022-11-25] MEDS: ASPIRIN 325 MG TAB PO SCH (08:25)
[2022-11-25 10:39] VITALS: RESP 18; TEMP 97.5
[2022-11-25 11:23] LABS: Glucose,Whole Blood 172 mg/dL (70-110)
[2022-11-25 12:52] VITALS: BP 162/83; PULSE 79
--- NOTE | 2022-11-25 13:00 | P.DS ---
Providers Date of admission: 11/23/22 16:44 Expected date of discharge: 11/25/22 Attending physician: Aga Smith Consults: 11/23/22 16:45 Consult Physician Routine Consulting Provider: Ailyn Riggs Consult Reason/Comments: CVA Do you want consulting provider notified?: Yes Primary care physician: [facility] Course: Discharge diagnoses; TIA 4 mm aneurysm of left MCA Hypertensive emergency Hyperlipidemia Insulin-dependent diabetes mellitus Hospital course; patient is 67-year-old lady with past medical history significant for hypothyroidism, hypertension, diabetes mellitus who presented to the ER because of slurred speech and numbness of her hand. Patient stated that at 10:30 AM she was in the store started noticing that there was numbness of her right hand, it was intermittent and coming and going, denied any weakness of that particular extremity. She also started noticing that his speech was stuttering. Denied any facial droop. Denied any weakness of any extremity. Patient came back home and continued to experience those symptoms, blood pressure was elevated at time. Because of these symptoms, patient came to the ER Initial lab work done in the ER showed WBC 17.1, hemoglobin 13.4, platelet count 342, sodium 136, potassium 4.8, BUN 14, creatinine 0.[address] brain done showed age indeterminate lacunar injuryCentral timbo, no acute intraperitoneal hemorrhage CTA done showed no evidence for large vessel occlusion, showed a 4 mm aneurysm of left MCA patient was admitted to medicine service 11/25. Patient seen and examined. MRI brain negative for acute intracranial process. 2-D done showed normal LV function, normal EF 50-60%, no regional wall motion abnormality. Her ABCD2 score is 6, which is a high risk for stroke. Patient will be placed on dual antiplatelet medication with aspirin 81 mg and Plavix 75 mg daily for 30 days. Thereafter she can stop Plavix and continue aspirin 81 mg indefinitely. Neurology cleared the patient for discharge PHYSICAL EXAMINATION: GENERAL: The patient is alert and oriented x3, not in any acute distress. Well developed, well nourished. HEENT: Pupils are round and equally reacting to light. EOMI. No scleral icterus. No conjunctival pallor. Normocephalic, atraumatic. No pharyngeal erythema. No thyromegaly. CARDIOVASCULAR: S1 and S2 present. No murmurs, rubs, or gallops. PULMONARY: Chest is clear to auscultation, no wheezing or crackles. ABDOMEN: Soft, nontender, nondistended, normoactive bowel sounds. No palpable organomegaly. MUSCULOSKELETAL: No joint swelling or deformity. EXTREMITIES: No cyanosis, clubbing, or pedal edema. NEUROLOGICAL: Gross neurological examination did not reveal any focal deficits. SKIN: No rashes. Dictation was produced using Sonocine dictation software. please excuse any grammatical, word or spelling errors. Patient Condition at Discharge: Good Plan - Discharge Summary New Discharge Prescriptions: New Aspirin 81 mg PO DAILY #30 tab Clopidogrel [Plavix] 75 mg PO DAILY #30 tab Continue Insulin Detemir (Levemir) [Levemir] 30 units SQ DAILY INSULIN LISPRO (humaLOG) [humaLOG] See Protocol SQ TID-W/MEALS PRN PRN Reason: HIGH BLOOD SUGAR Levothyroxine Sodium [Synthroid] 75 mcg PO DAILY amLODIPine [Norvasc] 10 mg PO DAILY PRN PRN Reason: BP OVER 160 Irbesartan 300 mg PO DAILY metFORMIN HCL 1,000 mg PO BID Meclizine [Antivert] 12.5 mg PO TID PRN PRN Reason: Vertigo Potassium Chloride [Klor-Con 8] 8 meq PO DAILY Omeprazole 40 mg PO AC-BRKFST Rosuvastatin [Crestor] 20 mg PO HS Discharge Medication List INSULIN LISPRO (humaLOG) [humaLOG] See Protocol SQ TID-W/MEALS PRN 03/22/16 [History] Insulin Detemir (Levemir) [Levemir] 30 units SQ DAILY 03/22/16 [History] Levothyroxine Sodium [Synthroid] 75 mcg PO DAILY 03/22/16 [History] Irbesartan 300 mg PO DAILY 11/23/22 [History] Meclizine [Antivert] 12.5 mg PO TID PRN 11/23/22 [History] Omeprazole 40 mg PO AC-BRKFST 11/23/22 [History] Potassium Chloride [Klor-Con 8] 8 meq PO DAILY 11/23/22 [History] Rosuvastatin [Crestor] 20 mg PO HS 11/23/22 [History] amLODIPine [Norvasc] 10 mg PO DAILY PRN 11/23/22 [History] metFORMIN HCL 1,000 mg PO BID 11/23/22 [History] Aspirin 81 mg PO DAILY #30 tab 11/25/22 [Rx] Clopidogrel [Plavix] 75 mg PO DAILY #30 tab 11/25/22 [Rx] Follow up Appointment(s)/Referral(s): Darcy Fierro MD [STAFF PHYSICIAN] - 1 Week Nonstaff,Physician [REFERRING] - 1-2 days Discharge Disposition: HOME SELF-CARE
--- NOTE | 2022-11-30 15:22 | P.PN ---
Subjective Progress Note Date: 11/25/22 Patient was seen for a follow-up. Offers no new complaints. Objective - Vital Signs Vital signs: Vital Signs Temp 97.5 F L 11/25/22 08:25 Pulse 80 11/25/22 08:25 Resp 18 11/25/22 08:25 BP 148/78 11/25/22 08:25 Pulse Ox 99 11/25/22 08:25 FiO2 Intake & Output 11/24/22 11/25/22 11/25/22 18:59 06:59 18:59 Intake Total 702 240 Output Total 0 Balance 702 240 Intake: Oral 702 240 Output: Urine 0 Other: Voiding Method Toilet Toilet Toilet # Voids 2 1 - Labs CBC & Chem 7: 11/23/22 14:41 11/23/22 14:41 Labs: Abnormal Lab Results - Last 24 Hours (Table) 11/24/22 11/24/22 11/24/22 Range/Units 11:59 16:26 20:16 POC Glucose (mg/dL) 196 H 212 H 192 H (70-110) mg/dL 11/25/22 11/25/22 Range/Units 06:06 11:21 POC Glucose (mg/dL) 118 H 172 H (70-110) mg/dL Assessment and Plan Assessment: * Probable TIA via CVA, manifesting with transient speech difficulty and right hand numbness. Her symptoms resolved in about 9 hours. Differential diagnosis also includes hypertensive encephalopathy. Her current NIH stroke scale is 0. * Hypertension, with recent escalation of blood pressure. * Cerebral aneurysm, 4 mm involving left MCA M1 segment, likely incidental finding. * Diabetes * Hyperlipidemia * Tobacco use Plan: * Patient's symptoms have resolved. She wants to go home. * CTA head and neck showed: No significant diameter reduction to account for the patient's symptoms. Nonspecific adenopathy within the neck. CTA of the head showed no evidence for large vessel occlusion. There is a 4 mm aneurysm left MCA M1 segment. * Carotid Doppler, revealed no ultrasound evidence for hemodynamically significant stenosis of bilateral carotid arterial system. Antegrade flow in both vertebral arteries. * Patient CTA of the head showed a 4 mm cerebral aneurysm left MCA M1 segment. It is asymptomatic, incidental finding at this time. Recommend patient follow up with neuro intervention Dr. Fierro as an outpatient in 2-4 weeks. * Fasting a.m. lipid panel cholesterol 175, LDL 96, HDL 52 and triglycerides 132. Patient was recently started on Crestor by her primary physician. She will continue Crestor. Target LDL <70. * Hemoglobin A1c 7.2. Recommend optimize control of diabetes to target A1c <7.0 * Optimize control of blood pressure to target < 130/70. * Patient was not taking any antiplatelet medication at home. Patient has been started on aspirin 325 mg daily. Her ABCD2 score is 6, which is a high risk for stroke. Patient will be placed on dual antiplatelet medication with aspirin 81 mg and Plavix 75 mg daily for 30 days. Thereafter she can stop Plavix and continue aspirin 81 mg indefinitely. * Recommend complete tobacco cessation. * Telemetry monitoring so far showing sinus rhythm, with sinus tachycardia with some PAC. * MRI of the brain which revealed no acute intracranial process. Mild chronic- appearing periventricular white matter ischemic change. I personally reviewed MRI, I agree with the findings. On my review, there is evidence of some demyelination in the central timbo. No acute process. * 2-D echo revealed normal left ventricular systolic function with EF 55-60%. No obvious regional wall motion abnormality. Normal left ventricular size and wall thickness. Bubble study not performed. * Neurologically clear for discharge.
== END 2022-11-25 13:36 | disposition home or self-care (01) ==
LOC: EC 14:09 → 3SCARD 16:44 → INTOOBSV 16:44 → 3SCARD 17:53
PROVIDERS: ADMIT Hospitalist; ATTEND Hospitalist
DX: G45.9 Transient cerebral ischemic attack, unspecified (principal); I67.1 Cerebral aneurysm, nonruptured; I16.1 Hypertensive emergency; E78.5 Hyperlipidemia, unspecified; E11.40 Type 2 diabetes mellitus with diabetic neuropathy, unspecified; G62.9 Polyneuropathy, unspecified; E03.9 Hypothyroidism, unspecified; I10 Essential (primary) hypertension; G70.00 Myasthenia gravis without (acute) exacerbation; R29.700 NIHSS score 0; F17.200 Nicotine dependence, unspecified, uncomplicated; R00.0 Tachycardia, unspecified; Z79.4 Long term (current) use of insulin; Z90.710 Acquired absence of both cervix and uterus; Z79.890 Hormone replacement therapy; Z79.899 Other long term (current) drug therapy; Z79.84 Long term (current) use of oral hypoglycemic drugs; Z91.048 Other nonmedicinal substance allergy status
CPT/HCPCS: 96374; 96375; 99285; 36415; 94760; 93005; 93306; 97162; 97165; 92523; 80061; 80053; 82550; 84484; 85025; 85610; 85730; 83036; 71046; 93880; 70496; 70450; 70498; 70551; G0378; S4990 ×3; J0360; J1200; J2930; Q9967

== ENCOUNTER 2023-02-27 18:42 | Emergency (ER) | payer MEDICARE ==
--- NOTE | 2023-02-27 19:06 | XR ---
EXAMINATION TYPE: XR finger RT DATE OF EXAM: 02/27/2023 6:58 PM CLINICAL INDICATION:Female, 67 years old with history of pain; [facility] COMPARISON: None TECHNIQUE: XR finger RT Frontal, lateral and oblique views were obtained. FINDINGS: Degeneration changes throughout the interphalangeal joints with soft tissue swelling around the third digit interphalangeal joint. No evidence of fracture. No evidence of fracture. IMPRESSION: Multifocal degeneration changes with soft tissue swelling around the third digit proximal phalangeal joint. No evidence for acute fracture.
[2023-02-27] MEDS ORDERED: IBUPROFEN 800 MG TAB PO STA (19:27)
--- NOTE | 2023-02-27 19:30 | ED ---
General Adult HPI - General Chief complaint: Extremity Injury, Upper Stated complaint: middle finger injury Time Seen by Provider: 02/27/23 19:08 Source: patient, RN notes reviewed Mode of arrival: ambulatory Limitations: no limitations - History of Present Illness Initial comments: 67-year-old female with past medical history significant for diabetes presents the emergency department with a chief complaint of right third digit swelling. Patient was attempting to decorate her house records) she noticed that her left middle finger he came painful and swollen. She is unsure if she had direct trauma. She took 2 extra take Tylenol at 12pm. This morning been mild symptomatic improvement. Denies any numbness, tingling, weakness In her upper extremity. - Related Data Home Medications Medication Instructions Recorded Confirmed INSULIN LISPRO (humaLOG) [humaLOG] See Protocol SQ TID-W/MEALS PRN 03/22/16 11/23/22 Insulin Detemir (Levemir) [Levemir] 30 units SQ DAILY 03/22/16 11/23/22 Levothyroxine Sodium [Synthroid] 75 mcg PO DAILY 03/22/16 11/23/22 Irbesartan 300 mg PO DAILY 11/23/22 11/23/22 Meclizine [Antivert] 12.5 mg PO TID PRN 11/23/22 11/23/22 Omeprazole 40 mg PO AC-BRKFST 11/23/22 11/23/22 Potassium Chloride [Klor-Con 8] 8 meq PO DAILY 11/23/22 11/23/22 Rosuvastatin [Crestor] 20 mg PO HS 11/23/22 11/23/22 amLODIPine [Norvasc] 10 mg PO DAILY PRN 11/23/22 11/23/22 metFORMIN HCL 1,000 mg PO BID 11/23/22 11/23/22 Previous Rx's Medication Instructions Recorded Aspirin 81 mg PO DAILY #30 tab 11/25/22 Clopidogrel [Plavix] 75 mg PO DAILY #30 tab 11/25/22 Allergies Allergy/AdvReac Type Severity Reaction Status Date / Time Iodinated Contrast Media Allergy Anaphylaxis Verified 02/27/23 18:46 [Iodinated Contrast Media - Oral and] Review of Systems ROS Statement: Those systems with pertinent positive or pertinent negative responses have been documented in the HPI. ROS Other: All systems not noted in ROS Statement are negative. Past Medical History Past Medical History: Diabetes Mellitus, Hyperlipidemia, Hypertension, Thyroid Disorder History of Any Multi-Drug Resistant Organisms: None Reported Past Surgical History: Appendectomy, Hysterectomy Past Psychological History: No Psychological Hx Reported Smoking Status: Current every day smoker Past Alcohol Use History: None Reported Past Drug Use History: None Reported General Exam - General Exam Comments Initial Comments: General: Alert, in no acute distress Head: atraumatic normocephalic. Eyes PERRL, EOMI intact, mucous membranes moist Respiratory: Lungs clear to auscultation bilaterally Cardiovascular: Heart rate regular rhythm Abdominal: Soft without guarding or rebound Extremities: Normal inspection with full range of motion and normal capillary refill, right PIP joint with generalized edema, ecchymosis. Limited range of motion secondary to pain. 2+ radial pulses. Distal neurovascular intact Neuroogic: alert and oriented 3, CN II-XII intact, able to ambulate with steady gait Skin: warm dry and intact with normal color Limitations: no limitations Course Vital Signs 02/27/23 02/27/23 18:44 19:55 Temperature 98.2 F 98.0 F Pulse Rate 94 81 Respiratory 16 18 Rate Blood Pressure 185/80 165/84 O2 Sat by Pulse 97 99 Oximetry Medical Decision Making - Medical Decision Making Was pt. sent in by a medical professional or institution (, PA, DEPUTY CHIEF SHERIFF, urgent care, hospital, or penitentiary...) When possible be specific @ -[No] Did you speak to anyone other than the patient for history (EMS, parent, family, police, friend...)? What history was obtained from this source @ -[No] Did you review nursing and triage notes (agree or disagree)? Why? @ -[I reviewed and agree with nursing and triage notes] Were old charts reviewed (outside hosp., previous admission, EMS record, old EKG, old radiological studies, urgent care reports/EKG's, penitentiary records)? Report findings @ -[No old charts were reviewed] Differential Diagnosis (chest pain, altered mental status, abdominal pain women, abdominal pain men, vaginal bleeding, weakness, fever, dyspnea, syncope, headache, dizziness, GI bleed, back pain, seizure, CVA, palpatations, mental health, musculoskeletal)? @ -[not applicable] EKG interpreted by me (3pts min.). @ -[As above] X-rays interpreted by me (1pt min.). @ . X-ray does not reveal any evidence of fracture or dislocation CT interpreted by me (1pt min.). @ -[None done] U/S interpreted by me (1pt. min.). @ -[None done] What testing was considered but not performed or refused? (CT, X-rays, U/S, labs)? Why? @ -[None] What meds were considered but not given or refused? Why? @ -[None] Did you discuss the management of the patient with other professionals (professionals i.e. DrMumtaz, PA, DEPUTY CHIEF SHERIFF, lab, RT, psych nurse, social media community manager, food service order clerk, teacher, medical information officer, rn field case manager)? Give summary @ -[No] Was smoking cessation discussed for >3mins.? @ -[No] Was critical care preformed (if so, how long)? @ -[No] Were there social determinants of health that impacted care today? How? (Homelessness, low income, unemployed, alcoholism, drug addiction, transportation, low edu. Level, literacy, decrease access to med. care, snf, rehab)? @ -[No] Was there de-escalation of care discussed even if they declined (Discuss DNR or withdrawal of care, Hospice)? DNR status @ -[No] What co-morbidities impacted this encounter? (DM, HTN, Smoking, COPD, CAD, Cancer, CVA, ARF, Chemo, Hep., AIDS, mental health diagnosis, sleep apnea, morbid obesity)? @ -[None] Was patient admitted / discharged? Hospital course, mention meds given and route, prescriptions, significant lab abnormalities, going to OR and other pertinent info. @ Discharged. This is a 67-year-old female with no significant past medical history who presents the emergency department with finger pain. Patient had a thorough history and physical exam performed. Third digit with generalized edema and mild ecchymosis at the PIP joint. Limited range of motion secondary to pain. 2+ radial pulses. Distal neurovascular intact. Patient had x-rays performed which were treated for fracture. I discussed results in detail with the patient verbalized understanding and questions were addressed. She was given Motrin with symptomatic improvement. Patient discharged in stable condition. Return precautions discussed. Patient case discussed with Dr. Weems Kamilah who agrees with plan of care Undiagnosed new problem with uncertain prognosis? @ -[No] Drug Therapy requiring intensive monitoring for toxicity (Heparin, Nitro, Insulin, Cardizem)? @ -[No] Were any procedures done? @ -[No] Diagnosis/symptom? @ -Finger pain Acute, or Chronic, or Acute on Chronic? @ -Acute Uncomplicated (without systemic symptoms) or Complicated (systemic symptoms)? @ -Uncomplicated Side effects of treatment? @ -[No] Exacerbation, Progression, or Severe Exacerbation? @ -[No] Poses a threat to life or bodily function? How? (Chest pain, [place], [place], pneumonia, PE, COPD, DKA, ARF, appy, cholecystitis, CVA, Diverticulitis, Homicidal, Suicidal, threat to staff... and all critical care pts) @ -Low likelihood Disposition Clinical Impression: Finger strain Disposition: HOME SELF-CARE Condition: Stable Additional Instructions: Please take Tylenol or Motrin for pain Please apply ice or heat to the area for 15 minutes at a time Please remain in splint during the daytime Please return to the nearest emergency department if worsening symptoms develop Is patient prescribed a controlled substance at d/c from ED?: No Referrals: Tamika Brown MD [Primary Care Provider] - 1-2 days Time of Disposition: 19:31
[2023-02-27 20:17] VITALS: BP 165/84; PULSE 81; RESP 18; TEMP 98
== END 2023-02-27 19:56 | disposition home or self-care (01) ==
LOC: EC 18:42
DX: S56.413A Strain of extensor muscle, fascia and tendon of right middle finger at forearm level, initial encounter (principal); E11.9 Type 2 diabetes mellitus without complications; E07.9 Disorder of thyroid, unspecified; F17.200 Nicotine dependence, unspecified, uncomplicated; I10 Essential (primary) hypertension; E78.5 Hyperlipidemia, unspecified; Z79.890 Hormone replacement therapy; Z79.899 Other long term (current) drug therapy; Z79.84 Long term (current) use of oral hypoglycemic drugs; Z79.4 Long term (current) use of insulin; Z91.041 Radiographic dye allergy status; X58.XXXA Exposure to other specified factors, initial encounter
CPT/HCPCS: 99283

== ENCOUNTER → 2023-03-01 | Outpatient (CLI) | payer MEDICARE ==
--- NOTE | 2023-03-01 12:16 | XR ---
EXAMINATION TYPE: XR cervical spine comp DATE OF EXAM: 03/01/2023 COMPARISON: NONE HISTORY: Pain TECHNIQUE: Four views are submitted. FINDINGS: The odontoid is intact. There are no compression deformities. The prevertebral soft tissue structur es are within normal limits. Grade 1 anterolisthesis C4-5 and C5-6. Multilevel facet arthropathy. Mo derate degenerative disc disease C6-7. Suspect foraminal encroachment this level bilaterally. Calcifi cations in the soft tissues of the neck likely vascular. IMPRESSION: 1. Grade 1 anterolisthesis C4-5 and C5-C6 with facet arthropathy. Recommend follow-up MRI. 2. Moderate degenerative disc disease C6-C7 suspect bilateral.
== END | disposition home or self-care (01) ==
LOC: RADXRMAIN 10:10
PROVIDERS: ATTEND Family Medicine
DX: M43.12 Spondylolisthesis, cervical region (principal); M50.323 Other cervical disc degeneration at C6-C7 level; M47.812 Spondylosis without myelopathy or radiculopathy, cervical region
CPT/HCPCS: 72050

== ENCOUNTER 2023-04-21 17:09 | Emergency (ER) | payer MEDICARE ==
--- NOTE | 2023-04-21 17:34 | ED ---
General Adult HPI - General Source: patient, RN notes reviewed <Bianka Miramontes - Last Filed: 04/21/23 17:30> <Ignacia Horner - Last Filed: 04/24/23 02:13> - General Chief complaint: Fall Stated complaint: Fall-rigth elbow Time Seen by Provider: 04/21/23 17:32 - History of Present Illness Initial comments: 68 year old female presents to the emergency department for right elbow pain. Patient states that she slipped on ice on stairs to her porch on Monday. She states that she has not been able to move the right arm at the elbow. She denies numbness, tingling. She denies head injury. (Bianka Miramontes) 68-year-old female presenting with chief complaint of right elbow pain. Patient slipped on ice on the stairs of her porch on Monday. She has had continued pain to the right elbow and is unable to move it. She thought it would get better with time but has not. She denies any numbness or tingling. She denies any head injury, loss of consciousness, use of blood thinners. (Ignacia Horner) - Related Data Home Medications Medication Instructions Recorded Confirmed INSULIN LISPRO (humaLOG) [humaLOG] See Protocol SQ TID-W/MEALS PRN 03/22/16 11/23/22 Insulin Detemir (Levemir) [Levemir] 30 units SQ DAILY 03/22/16 11/23/22 Levothyroxine Sodium [Synthroid] 75 mcg PO DAILY 03/22/16 11/23/22 Irbesartan 300 mg PO DAILY 11/23/22 11/23/22 Meclizine [Antivert] 12.5 mg PO TID PRN 11/23/22 11/23/22 Omeprazole 40 mg PO AC-BRKFST 11/23/22 11/23/22 Potassium Chloride [Klor-Con 8] 8 meq PO DAILY 11/23/22 11/23/22 Rosuvastatin [Crestor] 20 mg PO HS 11/23/22 11/23/22 amLODIPine [Norvasc] 10 mg PO DAILY PRN 11/23/22 11/23/22 metFORMIN HCL 1,000 mg PO BID 11/23/22 11/23/22 Previous Rx's Medication Instructions Recorded Aspirin 81 mg PO DAILY #30 tab 11/25/22 Clopidogrel [Plavix] 75 mg PO DAILY #30 tab 11/25/22 HYDROcodone/APAP 7.5-325MG [Milton 1 tab PO Q6HR PRN 3 Days #12 tab 04/21/23 7.5-325] Allergies Allergy/AdvReac Type Severity Reaction Status Date / Time Iodinated Contrast Media Allergy Anaphylaxis Verified 04/21/23 18:15 [Iodinated Contrast Media - Oral and] Review of Systems ROS Other: All systems not noted in ROS Statement are negative. <Bianka Miramontes - Last Filed: 04/21/23 17:30> ROS Other: All systems not noted in ROS Statement are negative. <Ignacia Horner - Last Filed: 04/24/23 02:13> ROS Statement: Those systems with pertinent positive or pertinent negative responses have been documented in the HPI. Past Medical History Past Medical History: Diabetes Mellitus, Hyperlipidemia, Hypertension, Thyroid Disorder History of Any Multi-Drug Resistant Organisms: None Reported Past Surgical History: Appendectomy, Hysterectomy Past Psychological History: No Psychological Hx Reported Smoking Status: Current every day smoker Past Alcohol Use History: None Reported Past Drug Use History: None Reported <Bianka Miramontes - Last Filed: 04/21/23 17:30> General Exam <Bianka Miramontes - Last Filed: 04/21/23 17:30> General appearance: alert, in no apparent distress Head exam: Present: atraumatic, normocephalic Eye exam: Present: normal appearance, EOMI Neck exam: Present: normal inspection Respiratory exam: Absent: respiratory distress Cardiovascular Exam: Present: regular rate Right Elbow exam: Present: tenderness, swelling. Absent: full ROM Vascular: Absent: vascular compromise Neurological exam: Present: alert, oriented X3 Psychiatric exam: Present: normal affect, normal mood Skin exam: Present: warm, dry <Ignacia Horner - Last Filed: 04/24/23 02:13> - General Exam Comments Initial Comments: Visual Physical Exam Vital signs reviewed General: Well-appearing, nontoxic, no acute distress. Head: Normocephalic, atraumatic Eyes: PERRLA, EOMI ENT: Airway patent Chest: Nonlabored breathing Skin: No visual rash, normal skin tone Neuro: Alert and oriented 3 Musculoskeletal: No gross abnormalities (Bianka Miramontes) Course Vital Signs 04/21/23 18:15 Temperature 98.9 F Pulse Rate 80 Respiratory 16 Rate Blood Pressure 142/79 O2 Sat by Pulse 98 Oximetry Procedures - Orthopedic Splinting/Casting Injury #1 Side: right Upper Extremity Injury Location: elbow Upper Extremity Immobilizer: posterior splint <Ignacia Horner - Last Filed: 04/24/23 02:13> Medical Decision Making <Bianka Miramontes - Last Filed: 04/21/23 17:30> <Ignacia Horner - Last Filed: 04/24/23 02:13> - Medical Decision Making Quick note preformed by Bianka Miramontes PA-C (Bianka Miramontes) Was pt. sent in by a medical professional or institution (JACKELINE Schafer, POLICE PATROL OFFICER, urgent care, hospital, or long term...) When possible be specific @ -No Did you speak to anyone other than the patient for history (EMS, parent, family, police, friend...)? What history was obtained from this source @ -No Did you review nursing and triage notes (agree or disagree)? Why? @ -I reviewed and agree with nursing and triage notes Were old charts reviewed (outside hosp., previous admission, EMS record, old EKG, old radiological studies, urgent care reports/EKG's, long term records)? Report findings @ -No old charts were reviewed Differential Diagnosis (chest pain, altered mental status, abdominal pain women, abdominal pain men, vaginal bleeding, weakness, fever, dyspnea, syncope, headache, dizziness, GI bleed, back pain, seizure, CVA, palpatations, mental health, musculoskeletal)? @ -Differential Musculoskeletal Muscular strain, contusion, ligament sprain, fracture, arthritis, septic arthritis, bursitis, cellulitis, muscle spasm, nerve compression, DVT, arterial occlusion, herpes zoster, electrolyte abnormality, tumor.... This is not meant to be in all inclusive list EKG interpreted by me (3pts min.). @ -As above X-rays interpreted by me (1pt min.). @ -X-ray shows anterior fat pad sign without displaced fracture visualized. Chronic injury to the lateral epicondyles and medial epicondyles with enthesophyte/desiccation formation CT interpreted by me (1pt min.). @ -None done U/S interpreted by me (1pt. min.). @ -None done What testing was considered but not performed or refused? (CT, X-rays, U/S, labs)? Why? @ -None What meds were considered but not given or refused? Why? @ -None Did you discuss the management of the patient with other professionals (professionals i.e. DrMumtaz, PA, POLICE PATROL OFFICER, lab, RT, psych nurse, health care social worker, course developer, teacher, transit authority police officer, insurance case manager)? Give summary @ -No Was smoking cessation discussed for >3mins.? @ -No Was critical care preformed (if so, how long)? @ -No Were there social determinants of health that impacted care today? How? (Homelessness, low income, unemployed, alcoholism, drug addiction, transportation, low edu. Level, literacy, decrease access to med. care, alf, rehab)? @ -No Was there de-escalation of care discussed even if they declined (Discuss DNR or withdrawal of care, Hospice)? DNR status @ -No What co-morbidities impacted this encounter? (DM, HTN, Smoking, COPD, CAD, Cancer, CVA, ARF, Chemo, Hep., AIDS, mental health diagnosis, sleep apnea, morbid obesity)? @ -None Was patient admitted / discharged? Hospital course, mention meds given and route, prescriptions, significant lab abnormalities, going to OR and other pertinent info. @ -68-year-old female presenting with chief complaint of right elbow injury on Monday. She has had continued pain. She is neurovascularly intact. She denies any head injury. X-ray shows anterior fat pad sign with no obvious displaced fracture. Patient is placed in a posterior splint and provided with an arm sling. Instructed to follow-up with orthopedics. Follow-up with PCP. Report back to ER with any new or worsening symptoms. Discussed return parameters and answered all questions. Patient conveyed verbal understanding and agreed to the plan. I discussed this case in detail with my attending Dr. Jon Undiagnosed new problem with uncertain prognosis? @ -No Drug Therapy requiring intensive monitoring for toxicity (Heparin, Nitro, Insulin, Cardizem)? @ -No Were any procedures done? @ -Posterior arm splint applied Diagnosis/symptom? @ -Elbow fracture Acute, or Chronic, or Acute on Chronic? @ -Acute Uncomplicated (without systemic symptoms) or Complicated (systemic symptoms)? @ -Uncomplicated Side effects of treatment? @ -No Exacerbation, Progression, or Severe Exacerbation? @ -No Poses a threat to life or bodily function? How? (Chest pain, [place], [place], pneumonia, PE, COPD, DKA, ARF, appy, cholecystitis, CVA, Diverticulitis, Homicidal, Suicidal, threat to staff... and all critical care pts) @ -No (Ignacia Horner) Disposition <Bianka Miramontes - Last Filed: 04/21/23 17:30> Is patient prescribed a controlled substance at d/c from ED?: No Time of Disposition: 20:03 <Ignacia Horner - Last Filed: 04/24/23 02:13> Clinical Impression: Elbow fracture Disposition: HOME SELF-CARE Condition: Good Instructions (If sedation given, give patient instructions): Elbow Fracture (ED) Additional Instructions: Follow up with orthopedics. Report back to ER with any new or worsening symptoms. Take motrin and tylenol as needed. Milton contains tylenol, do not combine with OTC tylenol Prescriptions: HYDROcodone/APAP 7.5-325MG [Milton 7.5-325] 1 tab PO Q6HR PRN 3 Days #12 tab PRN Reason: Pain Referrals: Tamika Brown MD [Primary Care Provider] - 1-2 days Vinay Reich DO [Doctor of Osteopathic Medicine] - 1-2 days
[2023-04-21 18:30] VITALS: BP 142/79; PULSE 80; RESP 16; TEMP 98.9
--- NOTE | 2023-04-21 19:28 | XR ---
EXAMINATION TYPE: XR elbow complete RT DATE OF EXAM: 04/21/2023 7:19 PM CLINICAL INDICATION:Female, 68 years old with history of fall; [facility] COMPARISON: None TECHNIQUE: XR elbow complete RT; elbow was examined in AP, lateral, and oblique projections. FINDINGS/IMPRESSION: 1. Anterior fat pad sign without displaced fracture visualized. Consider further evaluation with CT, if there remains clinical concern for fracture. 2. Chronic injury to the lateral epicondyle and medial epicondyle with enthesophyte/desiccation form ation.
[2023-04-21] MEDS ORDERED: ACET/COD 300 MG/30 MG STARTER PACK 6 TAB BTL PO STA (20:05)
== END 2023-04-21 20:11 | disposition home or self-care (01) ==
LOC: EC 17:09
DX: S42.401A Unspecified fracture of lower end of right humerus, initial encounter for closed fracture (principal); E11.9 Type 2 diabetes mellitus without complications; E78.5 Hyperlipidemia, unspecified; F17.200 Nicotine dependence, unspecified, uncomplicated; I10 Essential (primary) hypertension; E07.9 Disorder of thyroid, unspecified; Z79.4 Long term (current) use of insulin; Z79.890 Hormone replacement therapy; Z79.84 Long term (current) use of oral hypoglycemic drugs; Z79.899 Other long term (current) drug therapy; Z91.041 Radiographic dye allergy status; W00.0XXA Fall on same level due to ice and snow, initial encounter
CPT/HCPCS: 29125; 99283

== ENCOUNTER → 2023-08-17 | Outpatient (CLI) | payer MEDICARE ==
--- NOTE | 2023-08-21 19:31 | BD ---
EXAMINATION TYPE: Axial Bone Density DATE OF EXAM: 08/17/2023 CLINICAL HISTORY: 68 years old Female. ICD-10 CODE: M85.9 OTHER DISORDER OF BONE DENSITY AND STRUCTU RE Height: 59 Weight: 155.9 FRAX RISK QUESTIONS: Alcohol (3 or more units per day): no Family History (Parent hip fracture): no Glucocorticoids (More than 3mos): no (Ex: prednisone, prednisolone, methylprednisolone, dexamethasone, and hydrocortisone). History of Fracture in Adulthood: elbow Secondary Osteoporosis: 1. Type 1 Diabetes: no 2. Hyperthyroidism: no 3. Menopause before 45: yes 4. Malnutrition: no 5. Chronic liver disease: no Rheumatoid Arthritis: no Current Tobacco Use: yes RISK FACTORS HISTORY OF: Hip Fracture (Right/Left): no Spine Fracture: no History of Wrist Fracture: no Surgery to Spine/Hip(right/left)/Wrist (right/left): no MEDICATIONS: Thyroid Medications: Levothyroxine How Long: past 15 years Osteoporosis Medications: no EXAM MEASUREMENTS: Bone mineral densitometry was performed using the [employer] System. Bone mineral density as measured about the Lumbar spine is: ----- L1-L4(G/cm2): 1.037 T Score Values are as follows: ----- L1: -1.2 ----- L2: -1.4 ----- L3: -1.4 ----- L4: -1.0 ----- L1-L4: -1.2 Z Score Values are as follows: ----- L1: 0.2 ----- L2: 0.0 ----- L3: 0.1 ----- L4: 0.4 ----- L1-L4: 0.2 Baseline Study Bone mineral density about the R hip (g/cm2): 0.991 Bone mineral density about the L hip (g/cm2): 1.118 T Score values are as follows: -----R Neck: -0.1 -----L Neck: 0.9 -----R Total: -0.8 -----L Total: -0.2 Z Score values are as follows: -----R Neck: 0.6 -----L Neck: 1.2 -----R Total: 1.0 -----L Total: 2.1 Baseline Study FRAX%s: The graph provided illustrates a 7.7% chance for a major osteoporotic fx and a 0.9% chance fo r the hips probability for fx in 10 years time. IMPRESSION: Osteopenia (T Score between -2.5 and -1). There is slightly increased risk of fracture and the patient may be considered for treatment. Re-Screen 2-5 years. NOTE: T-SCORE=SD OF THE YOUNG ADULT MEAN.
== END | disposition home or self-care (01) ==
LOC: RADBDWWP 13:01
PROVIDERS: ATTEND Family Medicine
DX: M85.88 Other specified disorders of bone density and structure, other site (principal); Z78.0 Asymptomatic menopausal state
CPT/HCPCS: 77080

== ENCOUNTER 2023-08-29 08:57 | Day surgery (SDC) | payer MEDICARE ==
[~2023-08-29 08:57] MED LIST: SODIUM CHLORIDE 0.9% 1,000 ML IV SCH
[2023-08-29] MEDS: SODIUM CHLORIDE 0.9% 500 ML 500 ML IV ONE (09:06)
[2023-08-29 10:16] VITALS: BP 160/81; RESP 16; TEMP 98.2
[2023-08-29 12:10] VITALS: PULSE 82
[2023-08-29 13:16] LABS: Glucose,Whole Blood 160 mg/dL (70-110)
--- NOTE | 2023-08-29 16:02 | P.EPPROC ---
- EP Procedure Note Electrophysiology Procedure Note: Diagnosis Recurrent presyncope Twelve-lead EKG shows sinus rhythm with nonspecific ST-T abnormality Tilt table test per protocol Baseline blood pressure 147/73 mmHg pulse rate 76 beats a minute She was tilted upright in angle of 70 degrees per protocol no change in heart rate or blood pressure She complained of being dizzy all the time without any change in heart rate or blood pressure Impression nonspecific ST-T changes on twelve-lead EKG Normal heart rate and blood pressure response to upright tilting despite complaining of dizziness throughout the test
== END 2023-08-29 11:55 | disposition home or self-care (01) ==
LOC: CATHEP 08:57
PROVIDERS: ATTEND Internal Medicine Clinical Cardiac Electrophysiology
DX: R55 Syncope and collapse (principal)
CPT/HCPCS: 93660

== ENCOUNTER → 2023-09-22 | Outpatient (CLI) | payer MEDICARE ==
--- NOTE | 2023-09-22 17:38 | CTL ---
EXAMINATION TYPE: CT Low Dose Lung DATE OF EXAM: 09/22/2023 5:25 PM CLINICAL INDICATION:Female, 68 years old with history of Z12.2 SCREENING LUNG CA F17.210; Current smo ker. .5 ppd x 50 years , history of tobacco use. COMPARISON: None. TECHNIQUE: Multiple axial non-contrast scans were obtained from approximately the lung apices through the upper abdomen. Coronal and sagittal reformatted images were obtained. Low dose technique was uti lized. CT DLP: 79.1 mGycm, Automated exposure control for dose reduction was used. CT Contrast: Contrast used: None Oral contrast used: None FINDINGS: ======== Lack of intravenous contrast and low dose technique limits the evaluation of the vascular and soft ti ssue structures. LUNGS: No evidence of pulmonary fibrosis. No evidence of focal consolidation, pneumothorax or pleural effusion. Centrilobular emphysema changes. Nodules: RUL: None. RML: None. RLL: None. EMILY: None. LLL: None. AIRWAY: Patent and unremarkable. HEART: Size within normal limits. MEDIASTINUM: No gross evidence of adenopathy. VASCULATURE: No aortic aneurysm. atherosclerosis of the coronary arteries MUSCULOSKELETAL: No acute osseous abnormalities SOFT TISSUES/LYMPH NODES: Unremarkable. LOWER NECK: No significant findings. UPPER ABDOMEN: No significant findings. IMPRESSION: 1. No clinically significant pulmonary nodules. 2. Mild emphysema. 3. Moderate to severe coronary artery atherosclerosis. CT LUNG RAD AND CT CHEST RECOMMENDATION: Lung-Rad 1 Negative: Continue annual screening with LDCT in 12 months. S Modifier (other clinically significant findings): None Recommend smoking cessation (if current smoker), or continuation of smoking cessation (if prior smoke r). Annual screening for lung cancer with low-dose computed tomography is recommended in adults ages 55 to 77 years who have a 30 pack-year smoking history and currently smoke or have quit within the pa st 15 years. Screening should be discontinued once a person has not smoked for 15 years or develops a health problem that substantially limits life expectancy or the ability or willingness to have curat muriel lung surgery. Lung rads 2021 [email or web address]
== END | disposition home or self-care (01) ==
LOC: RADCTMAIN 17:01
PROVIDERS: ATTEND Internal Medicine Hematology & Oncology
DX: Z12.2 Encounter for screening for malignant neoplasm of respiratory organs (principal); J43.9 Emphysema, unspecified; I25.10 Atherosclerotic heart disease of native coronary artery without angina pectoris; D72.829 Elevated white blood cell count, unspecified; Z71.3 Dietary counseling and surveillance; F17.210 Nicotine dependence, cigarettes, uncomplicated
CPT/HCPCS: 71271

== ENCOUNTER → 2023-09-26 | Outpatient (CLI) | payer MEDICARE ==
--- NOTE | 2023-09-26 21:29 | MR ---
EXAMINATION TYPE: MR iac wo/w con DATE OF EXAM: 09/26/2023 COMPARISON: MRI brain November 24, 2022 HISTORY: Constant dizziness, bilateral hearing loss TECHNIQUE: Multiplanar, multisequence images of the brain and brainstem is performed without and with IV contras t, utilizing 7 mL intravenous Gadavist . Acoustic nerve disorder protocol. FINDINGS: Diffusion weighted images demonstrate no evidence of a recent infarct or other diffusion ab normality. There is no extra-axial fluid collection or significant white matter signal abnormality. The ventricular system and cisternal spaces are normal in size and appearance. The brain volume is age appropriate. Midline structures demonstrate normal morphology. The craniocervical junction appears within normal limits. Normal vascular flow voids are seen. Bilateral aphakia is redemonstrated. Paranasal sinuses r edemonstrate mild mucosal thickening anterior ethmoid sinuses bilaterally. No suspicious opacification of mastoid air cells bilaterally. The vestibulocochlear complexes are sym metric and felt within normal limits. There is no abnormal enhancing cerebellopontine angle mass iden tified bilaterally. IMPRESSION: 1. No suspicious findings to account for patient's symptoms. Mild chronic anterior ethmoid sinus dise ase otherwise unremarkable study.
== END | disposition home or self-care (01) ==
LOC: RADMRIMAIN 17:52
PROVIDERS: ATTEND Family Medicine
DX: J32.2 Chronic ethmoidal sinusitis (principal); H90.3 Sensorineural hearing loss, bilateral
CPT/HCPCS: 70553; A9585

== ENCOUNTER → 2023-12-30 | Outpatient (CLI) | payer MEDICARE ==
--- NOTE | 2023-12-30 08:24 | MR ---
EXAMINATION TYPE: MR cervical spine wo con DATE OF EXAM: 12/30/2023 8:17 AM CLINICAL INDICATION: Female, 68 years old with history of M43.13 SPONDYLOLISTHESIS, CERVICOTHORACIC R EGION; , Severe neck pain COMPARISON: None. TECHNIQUE: Multi planar, multi sequence imaging was performed utilizing: T1-weighted, T2-weighted, an d turbo inversion recovery imaging of the cervical spine. IV Contrast: cc (none if empty) FINDINGS: Alignment: The cervical vertebral bodies have preserved heights. Alignment is within normal limits gi talat patient positioning. Bones: Osteophytes and disc space narrowing most pronounced at the C5-C7 vertebral levels. No abnorma l edema on inversion recovery sequences. Cord: The spinal cord is unremarkable with regards to their signal intensity and morphology. Discs: Intervertebral disc signal is maintained. C2-C3: No significant disc pathology. The spinal canal is patent. No neural foraminal stenosis. C3-C4: No significant disc pathology. The spinal canal is patent. No neural foraminal stenosis. C4-C5: A disc osteophyte complex is present which minimally narrows the ventral subarachnoid space an d impresses upon the spinal cord slightly. Spinal cord signal maintained. No neural foraminal steno sis. C5-C6: No significant disc pathology. The spinal canal is patent. No neural foraminal stenosis. C6-C7: No significant disc pathology. The spinal canal is patent. No neural foraminal stenosis. C7-T1: No significant disc pathology. The spinal canal is patent. No neural foraminal stenosis. Other: None. IMPRESSION: 1. No evidence for disc herniation or significant spinal canal stenosis. 2. Mild disc degeneration with associated osteoarthritic changes.
== END | disposition home or self-care (01) ==
LOC: RADMRIMAIN 07:44
PROVIDERS: ATTEND Family Medicine
DX: M43.13 Spondylolisthesis, cervicothoracic region
CPT/HCPCS: 72141

== ENCOUNTER → 2024-06-10 | Outpatient (CLI) | payer MEDICARE ==
[2024-06-10 15:22] LABS: African American GFR (CKD) 66 (>60 ml/min/1.73 sqM); Blood Urea Nitrogen 21 mg/dL (7-17); Non-African American GFR(CKD) 57 (>60 ml/min/1.73 sqM)
--- NOTE | 2024-06-10 18:45 | CT ---
EXAMINATION TYPE: CT angio head neck CT DLP: combined 1362.2 mGycm, Automated exposure control for dose reduction was used. DATE OF EXAM: 06/10/2024 4:48 PM COMPARISON: CT brain 06/10/2024, 11/23/2022, MRI brain 11/24/2022, CTA head and Neck 11/23/2022. CLINICAL INDICATION:Female, 69 years old with history of I67.1 CEREBRAL ANEURYSM, NONRUPTURED; PHH, b rain aneurysm x 2 years TECHNIQUE: Axially acquired helical CT angiogram of the head and neck was obtained with contrast util izing 75 cc of Isovue-370 administered intravenously. Axial images are supplemented with 3D reconstru ctions which were post-processed at an independent workstation. NASCET criteria used. FINDINGS: CTA HEAD: No evidence of acute intracranial hemorrhage, mass effect, or midline shift. The ventricles, sulci, a nd cisterns are unremarkable. The visualized portions of the internal carotid arteries, middle cerebral arteries, anterior cerebral arteries, and posterior cerebral arteries are patent. The basilar and vertebral arteries are patent. CTA NECK: Right Carotid System: The common carotid artery and external carotid artery are patent. Minimal calcified plaque at the car otid bifurcation. The carotid bifurcation demonstrates no evidence of hemodynamically significant estrella nosis. The remaining portions of the internal carotid artery demonstrate normal size without signific ant narrowing. Left Carotid System: The common carotid artery and external carotid artery are patent. Mild calcified plaque at the caroti d bifurcation. There is approximately 20% stenosis at the origin of the left internal carotid artery secondary to calcified plaque. The remaining portions of the internal carotid artery demonstrate norm al size without significant narrowing. Vertebral arteries are patent without evidence hemodynamically significant stenosis. There is a three-vessel aortic arch. The origins of the great vessels are patent. No evidence of hemo dynamically significant stenosis. Stable peripherally calcified 8 mm right thyroid lobe nodule. Bilateral aphakia. Redemonstration of m ucous retention cyst within the inferior right maxillary sinus measuring up to 1.1 cm. IMPRESSION: 1. No evidence of dissection of the cervical internal carotid arteries or vertebral arteries or any e vidence of significant stenosis at the carotid bifurcations. 2. No evidence of high-grade stenosis or intracranial aneurysm. Previously seen aneurysm is not visu alized. [facility], , 06/10/2024 6:42 PM
== END | disposition home or self-care (01) ==
LOC: RADCTMAIN 14:33
PROVIDERS: ATTEND Psychiatry & Neurology Neurology
DX: Z13.89 Encounter for screening for other disorder (principal); I67.1 Cerebral aneurysm, nonruptured; H27.03 Aphakia, bilateral
CPT/HCPCS: 82565; 84520; 70496; 70450; 70498; 36415; Q9967

== ENCOUNTER → 2024-06-10 | Outpatient (CLI) | payer MEDICARE ==
--- NOTE | 2024-06-10 17:18 | CT ---
EXAMINATION TYPE: CT brain wo con CT DLP: Combined 1362.2 mGycm, Automated exposure control for dose reduction was used. DATE OF EXAM: 06/10/2024 4:48 PM COMPARISON: MR IAC 09/26/2023, MRI brain 11/24/2022, CT brain 11/23/2022 CLINICAL INDICATION:Female, 69 years old with history of I67.1 CEREBRAL ANEURYSM, brain aneurysm x 2 years TECHNIQUE: Brain: Multiple axial CT images of the brain were obtained without IV contrast. . Coronal and sagitta l reformats reviewed. FINDINGS: Brain: Extra-axial spaces: No abnormal extra-axial fluid collections. Ventricular system: Within normal limits Cerebral parenchyma: No acute intraparenchymal hemorrhage or mass effect. The holcomb-white junction is well differentiated. Scattered hypoattenuating areas are seen within the periventricular white matte r. Remote lacunar injury within the central timbo. Cerebellum: Unremarkable. Mass effect: No evidence of midline shift. Intracranial vasculature: Atherosclerotic calcifications of the intracranial vessels. Soft tissues: Normal. Calvarium/osseous structures: No depressed skull fracture. Paranasal sinuses and mastoid air cells: The mastoid air cells are clear. Mucous retention cyst withi n the inferior right maxillary sinus measuring 1.1 cm. Mild mucosal thickening of the anterior left e thmoid sinus. Visualized orbits: Bilateral aphakia IMPRESSION: 1. No acute intracranial process. 2. Remote timbo lacunar injury along with nonspecific white matter changes likely secondary to chronic microangiopathy. [facility], , 06/10/2024 5:15 PM
== END | disposition home or self-care (01) ==
LOC: RADCTMAIN 14:40
PROVIDERS: ATTEND Psychiatry & Neurology Neurology
DX: Z13.89 Encounter for screening for other disorder (principal); I67.1 Cerebral aneurysm, nonruptured; R90.82 White matter disease, unspecified
CPT/HCPCS: 70450